=== PATIENT | male | born 1960 | race African-American/Black ===

== ENCOUNTER 2024-09-11 20:28 | Inpatient (IN) | payer MEDICARE, OTHER ==
[~2024-09-11] VITALS: Ht 190.5 cm; Wt 76.1 kg
[2024-09-11] MEDS ORDERED: HYDR-4209 PO (20:55)
[2024-09-11] MEDS ORDERED: COLL30OI TOP (20:55)
[2024-09-11] MEDS ORDERED: ACET-3117 PO (20:55)
[2024-09-11] MEDS ORDERED: CLON0.1T PO (20:55)
[2024-09-11] MEDS ORDERED: MULT-1119 PO (20:55)
[2024-09-11 21:25] LABS: PLATELET COUNT (AUTO) 304 K/uL (152-348); RED BLOOD CELL COUNT(AUTO) 3.39 MIL/uL (4.06-5.63); RED CELL DISTRIBUTION WIDTH 15.8 % (12.1-16.2); WHITE BLOOD COUNT (AUTO) 4.7 K/uL (3.6-10.2)
[2024-09-11 21:33] LABS: CREATININE 0.7 mg/dL (0.6-1.3); SODIUM SERUM 140 mmol/L (136-145); UREA NITROGEN, BLOOD 20 mg/dL (7-18)
[2024-09-11 21:38] LABS: ASPARTATE AMINOTRANSFERASE 7 U/L (15-37); TOTAL PROTEIN, SERUM 6.9 g/dL (6.4-8.2)
[2024-09-11 23:58] LABS: *AMPHETAMINE, URINE NEGATIVE (NEGATIVE); *BARBITURATE, URINE NEGATIVE (NEGATIVE); *BENZODIAZEPINE, URINE NEGATIVE (NEGATIVE); *CANNABINOID, URINE NEGATIVE (NEGATIVE); *COCCAINE, URINE NEGATIVE (NEGATIVE); *OPIATE, URINE POSITIVE (NEGATIVE); *PHENCYCLIDINE SCREEN,URINE NEGATIVE (NEGATIVE); FENTANYL, URINE NEGATIVE (NEGATIVE)
[2024-09-12] MEDS ORDERED: KETOROLAC TROMETHAMINE 30 MG INJ ONE (03:47)
[2024-09-12] MEDS: KETOROLAC TROMETHAMINE 30 MG INJ IVP ONE (03:49)
[2024-09-12] MEDS ORDERED: IOHEXOL 350 100 ML INFUS..BTL ONE (04:20)
[2024-09-12] MEDS ORDERED: ONDANSETRON 4 MG/2 ML VIAL IV PRN (06:00)
[2024-09-12] MEDS ORDERED: MAGNESIUM HYDROXIDE 30 ML LIQUID UDC PO PRN (06:00)
[2024-09-12 06:27] VITALS: BP 144/77; TEMP 97.5; O2SAT 100
[2024-09-12] MEDS: PANTOPRAZOLE SODIUM 40 MG TABLET.DR PO SCH (06:45)
[2024-09-12 07:38] VITALS: BP 149/79; TEMP 98.2; O2SAT 96
[2024-09-12] MEDS: ENOXAPARIN SODIUM 40 MG/0.4 ML DISP.SYRIN SQ SCH (08:36)
[2024-09-12 08:42] LABS: PLATELET COUNT (AUTO) 291 K/uL (152-348); RED BLOOD CELL COUNT(AUTO) 3.27 MIL/uL (4.06-5.63); RED CELL DISTRIBUTION WIDTH 15.9 % (12.1-16.2); WHITE BLOOD COUNT (AUTO) 4.3 K/uL (3.6-10.2)
[2024-09-12 09:07] LABS: ASPARTATE AMINOTRANSFERASE 14 U/L (15-37); CREATININE 0.8 mg/dL (0.6-1.3); SODIUM SERUM 139 mmol/L (136-145); TOTAL PROTEIN, SERUM 7.2 g/dL (6.4-8.2); UREA NITROGEN, BLOOD 22 mg/dL (7-18)
[2024-09-12] MEDS ORDERED: DULO60CA45 PO (10:35)
[2024-09-12] MEDS ORDERED: ARIP5TAB10 PO (10:35)
[2024-09-12] MEDS ORDERED: GABA300C PO (10:35)
[2024-09-12] MEDS ORDERED: FAMO-132 PO (10:35)
[2024-09-12] MEDS ORDERED: SPIR25TA6 PO (10:35)
[2024-09-12] MEDS ORDERED: APIX5TAB PO (10:35)
[2024-09-12] MEDS ORDERED: AMLO10TA59 PO (10:35)
[2024-09-12] MEDS ORDERED: TAMS-3 PO (10:35)
[2024-09-12] MEDS ORDERED: TRAZ-182 PO (10:35)
[2024-09-12] MEDS ORDERED: DIVA250T4 PO (10:35)
[2024-09-12] MEDS ORDERED: HYDR-3980 PO (10:35)
[2024-09-12 11:14] VITALS: BP 164/89; TEMP 98.7; O2SAT 100
[2024-09-12] MEDS: DIVALPROEX 250 MG TABLET.DR PO SCH (14:01)
[2024-09-12 15:09] VITALS: BP 163/89; TEMP 98.4; O2SAT 100
[2024-09-12] MEDS: SPIRONOLACTONE 25 MG TABLET PO SCH (15:23)
[2024-09-12] MEDS: ARIPIPRAZOLE 5 MG TABLET PO SCH (15:23)
[2024-09-12] MEDS: GABAPENTIN 300 MG CAPSULE PO SCH (15:23)
[2024-09-12] MEDS: AMLODIPINE 10 MG TABLET PO SCH (15:23)
[2024-09-12] MEDS: DULOXETINE 60 MG CAPSULE.DR PO SCH (15:23)
[2024-09-12] MEDS: PHENAZOPYRIDINE HCL 100 MG TABLET PO PRN (16:34)
[2024-09-12] MEDS ORDERED: FAMOTIDINE 20 MG TABLET PO SCH (17:00)
[2024-09-12 19:47] VITALS: BP 150/88; TEMP 98.2; O2SAT 99
[2024-09-12] MEDS: ACETAMINOPHEN 325 MG TABLET PO PRN (20:51)
[2024-09-12] MEDS: TAMSULOSIN HCL 0.4 MG CAP.SR.24H PO SCH (20:52)
[2024-09-12] MEDS: APIXABAN 5 MG TABLET PO SCH (20:56)
[2024-09-13] VITALS: BP 133/87; TEMP 97.9; O2SAT 100
[2024-09-13] MEDS: HYDROCODONE/APAP 10-325 MG TABLET PO ONE (02:07)
[2024-09-13 04:00] VITALS: BP 149/94; TEMP 97.6; O2SAT 100
[2024-09-13] MEDS: NITROGLYCERIN 0.4 MG/TAB BOTTLE SL PRN (06:27)
[2024-09-13 07:44] VITALS: BP 134/87; TEMP 97.4; O2SAT 100
[2024-09-13 08:22] LABS: PLATELET COUNT (AUTO) 271 K/uL (152-348); RED BLOOD CELL COUNT(AUTO) 3.26 MIL/uL (4.06-5.63); RED CELL DISTRIBUTION WIDTH 15.5 % (12.1-16.2); WHITE BLOOD COUNT (AUTO) 4.1 K/uL (3.6-10.2)
[2024-09-13 08:34] LABS: CREATININE 0.8 mg/dL (0.6-1.3); SODIUM SERUM 140.0 mmol/L (136-145); UREA NITROGEN, BLOOD 19.0 mg/dL (7-18)
[2024-09-13 11:49] VITALS: BP 150/91; TEMP 97.8; O2SAT 99
[2024-09-13 15:15] VITALS: BP 141/88; TEMP 97.7; O2SAT 100
[2024-09-13 19:20] VITALS: BP 142/87; TEMP 98.4; O2SAT 100
[2024-09-13] MEDS: MUPIROCIN 2% OINT 22 GM TUBE NS SCH (21:58)
[2024-09-14] MEDS: HYDROCODONE/APAP 10-325 MG TABLET PO ONE (00:33)
[2024-09-14] MEDS: TRAZODONE 50 MG TABLET PO PRN (01:42)
[2024-09-14 06:52] LABS: PLATELET COUNT (AUTO) 280 K/uL (152-348); RED BLOOD CELL COUNT(AUTO) 3.47 MIL/uL (4.06-5.63); RED CELL DISTRIBUTION WIDTH 15.4 % (12.1-16.2); WHITE BLOOD COUNT (AUTO) 4.1 K/uL (3.6-10.2)
[2024-09-14 07:03] VITALS: BP 150/84; TEMP 98.6; O2SAT 100
[2024-09-14 07:14] LABS: CREATININE 0.8 mg/dL (0.6-1.3); SODIUM SERUM 139.0 mmol/L (136-145); UREA NITROGEN, BLOOD 22.0 mg/dL (7-18)
[2024-09-14 11:30] VITALS: BP 136/81; TEMP 98.4; O2SAT 99
[2024-09-14] MEDS: ARGININE/GLUTAMINE/CALCIUM BMB 1 EACH POWD.PACK PO SCH (12:36)
[2024-09-14 15:11] VITALS: BP 152/85; TEMP 97.6; O2SAT 100
[2024-09-14 19:00] VITALS: BP 147/83; TEMP 97.6; O2SAT 99
[2024-09-14] MEDS: HYDROCODONE/APAP 10-325 MG TABLET PO PRN (21:45)
[2024-09-15 06:34] VITALS: BP 141/81; TEMP 97.6; O2SAT 100
[2024-09-15 06:44] LABS: PLATELET COUNT (AUTO) 248 K/uL (152-348); RED BLOOD CELL COUNT(AUTO) 3.36 MIL/uL (4.06-5.63); RED CELL DISTRIBUTION WIDTH 15.1 % (12.1-16.2); WHITE BLOOD COUNT (AUTO) 4.0 K/uL (3.6-10.2)
[2024-09-15 07:20] LABS: CREATININE 0.7 mg/dL (0.6-1.3); SODIUM SERUM 139 mmol/L (136-145); UREA NITROGEN, BLOOD 20 mg/dL (7-18)
[2024-09-15 11:12] VITALS: BP 138/48; TEMP 98.2; O2SAT 98
[2024-09-15] MEDS: MEDIHONEY= THERAHONEY 1.5 OZ TUBE TOP SCH (12:55)
[2024-09-15 15:12] VITALS: BP 126/81; TEMP 98.2; O2SAT 96
[2024-09-15] MEDS ORDERED: NUTR1PAC14 PO (15:34)
== END 2024-09-15 18:10 | DRG 205 ==
LOC: ER 20:34 → TELE3 09-12 01:00 → MEDSURG3 09-13 11:47
PROVIDERS: ADMIT Nurse Practitioner Family; ATTEND Student in an Organized Health Care Education/Training Program
DX: M94.0 Chondrocostal junction syndrome [Tietze] (principal); E43 Unspecified severe protein-calorie malnutrition; R53.2 Functional quadriplegia; D68.59 Other primary thrombophilia; J43.8 Other emphysema; Z79.01 Long term (current) use of anticoagulants; Z79.899 Other long term (current) drug therapy; E86.0 Dehydration; I25.2 Old myocardial infarction; Z90.01 Acquired absence of eye; I69.398 Other sequelae of cerebral infarction; F32.A Depression, unspecified; I11.9 Hypertensive heart disease without heart failure; E78.5 Hyperlipidemia, unspecified; D64.9 Anemia, unspecified; R79.89 Other specified abnormal findings of blood chemistry; Z22.322 Carrier or suspected carrier of Methicillin resistant Staphylococcus aureus
CPT/HCPCS: 36415; 71045; 71275; 83735; 84100; 84443; 84484; 85025; 87040; 93005; 93307; A6209; A6213; G0378; J1650; J1885; J3490; Q9967